=== PATIENT | male | born 1990 | race Caucasian/White ===

== ENCOUNTER 2023-07-30 12:13 | Emergency (ER) | payer SELFPAY ==
[~2023-07-30] VITALS: Ht 175.3 cm; Wt 83.0 kg
[2023-07-30 12:22] VITALS: O2SAT 97
[2023-07-30 12:43] LABS: CLARITY URINE CLOUDY (CLEAR); COLOR URINE RED (YELLOW); GLUCOSE URINE NEGATIVE (NEGATIVE); KETONES URINE NEGATIVE (NEGATIVE); LEUKOCYTE ESTERASE URINE 1+ (NEGATIVE); NITRITE URINE NEGATIVE (NEGATIVE); OCCULT BLOOD URINE 3+ (NEGATIVE); PH URINE 5.5 (4.5-8.0); PROTEIN URINE 1+ (NEGATIVE); SPECIFIC GRAVITY URINE 1.017 (1.005-1.030); UROBILINOGEN URINE 0.2 E.U./dL (0.2-1.0)
[2023-07-30 12:58] LABS: HEMATOCRIT. 44.3 % (42.0-52.0); HEMOGLOBIN. 15.2 g/dL (14.0-18.0); MEAN CORPUSCULAR HEMOGLOBIN 30.3 pg (28.0-32.0); MEAN CORPUSCULAR HGB CONC 34.2 g/dL (31.0-37.0); MEAN CORPUSCULAR VOLUME 88.6 fL (80.0-94.0); MEAN PLATELET VOLUME 7.8 fl (7.4-10.4); PLATELET 313 x1000/uL (130-400); RED CELL DISTRIBUTION WIDTH 12.6 % (11.6-14.6); WHITE BLOOD COUNT 14.1 x1000/uL (4.5-11.0)
[2023-07-30 13:02] LABS: DIFFERENTIAL COMMENT 1
[2023-07-30 13:11] LABS: CHLORIDE 107 mEq/L (98-107); POTASSIUM 3.9 mEq/L (3.5-5.1); SODIUM 138 mEq/L (136-145)
[2023-07-30 13:12] LABS: CARBON DIOXIDE 26 mEq/L (21-32)
[2023-07-30 13:13] LABS: CALCIUM 9.6 mg/dL (8.7-10.4)
[2023-07-30 13:17] LABS: CREATININE 0.8 mg/dL (0.6-1.3); GLUCOSE 112 mg/dL (70-105); UREA NITROGEN BLOOD 13 mg/dL (9-23)
[2023-07-30 13:31] LABS: RBC URINE TNTC /hpf (0-2); SQUAMOUS EPITHELIAL CELL URINE NONE SEEN /lpf (RARE/1+)
[2023-07-30 13:32] LABS: BACTERIA URINE TRACE
[2023-07-30 13:54] LABS: PLATELET ESTIMATE NORMAL
[2023-07-30] MEDS: ONDANSETRON HCL 4MG/2ML INJ IV ONE (14:39)
[2023-07-30] MEDS: KETOROLAC 30MG/ML VIAL IV ONE (14:39)
[2023-07-30] MEDS: SODIUM CHLORIDE 0.9% 1,000 ML IV ONE (14:40)
[2023-07-30] MEDS ORDERED: TAMS-11 MT (17:08)
[2023-07-30] MEDS ORDERED: IBUP-2029 MT (17:08)
[2023-07-30 17:48] VITALS: BP 134/78; PULSE 80; RESP 20; TEMP 98
== END 2023-07-30 17:48 | disposition home or self-care (01) ==
LOC: ER 12:13
DX: N13.2 Hydronephrosis with renal and ureteral calculous obstruction (principal)
CPT/HCPCS: 80048; 81003; 85025; 36415; 74176; 96361; 96374; 96375; 99285; J1885; J2405; J7030; Z7610 ×2